=== PATIENT | female | born 1990 | race Two or more races ===

== ENCOUNTER 2021-06-06 16:50 | Observation (INO) | payer SELFPAY ==
[2021-06-06] MEDS ORDERED: IV RINGERS,LACTATED 1000ML 1,000 ML IV SCH (17:30)
[2021-06-06 17:34] LABS: BILIRUBIN,URINE NEGATIVE (NEG); CLARITY,URINE CLEAR; COLOR,URINE YELLOW; NITRITE,URINE NEGATIVE (NEG); PROTEIN,URINE NEGATIVE (NEG-TRACE); UROBILINOGEN,URINE 0.2 mg/dL (0.2 mg/dL)
[2021-06-06 17:45] LABS: BACTERIA,URINE MODERATE /HPF (0-FEW)
[2021-06-06 17:47] LABS: RBC,URINE 0 /HPF (0-2)
== END 2021-06-06 18:07 | disposition home or self-care (01) ==
LOC: 3 SO LND 16:50
PROVIDERS: ADMIT Obstetrics & Gynecology; ATTEND Obstetrics & Gynecology
DX: O36.8130 Decreased fetal movements, third trimester, not applicable or unspecified (principal); Z79.899 Other long term (current) drug therapy; Z3A.38 38 weeks gestation of pregnancy
CPT/HCPCS: 59025; 81001; 87086; G0378; G0379